=== PATIENT | male | born 1955 | race Caucasian/White ===

== ENCOUNTER → 2016-12-27 | Outpatient (CLI) | payer BC ==
[~2016-12-27] MED LIST: ANDROGEL1.25 GM TD; ASPIRIN EC81 M1 PO; GLUCOSAMINE-CHO1 CA1 PO; GLUCOTROL; HYDROCHLOROTHIA25 MG PO; INVOKANA100 MG PO; JARDIANCE10 MG PO; KEFLEX500 M2 PO; METFORMIN PO; MULTI-DAY VITAM1 TAB PO; POTASSIUM CITR15 MEQ PO; SIMVASTATIN40 MG PO; VICTOZA0.6 MG/0.1 SQ; VOLTAREN75 MG PO
== END | disposition home or self-care (01) ==
LOC: SLAB 11:23
DX: E11.9 Type 2 diabetes mellitus without complications (principal)
CPT/HCPCS: 36415; 83036